=== PATIENT | female | born 1985 | race Caucasian/White ===

== ENCOUNTER 2021-11-03 07:52 | Emergency (ER) | payer OTHER, SELFPAY ==
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
[2021-11-03 08:02] VITALS: BP 115/60; PULSE 81; RESP 18; TEMP 36.3; O2SAT 98; BMI 28.8
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
[2021-11-03] MEDS: Ibuprofen 800 MG TABLET PO (10:42)
--- NOTE | 2021-11-03 11:32 | PC.NURSE ---
PT IN NO DISTRESS. 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 PT AWAKE, ALERT AND ORIENTED X 3. SKIN WARM AND DRY., RESP UNLABORED. DENIES N/V. NO ACUTE DISTRESS.
[2021-11-03 11:37] VITALS: PULSE 70; RESP 18
== END 2021-11-03 11:43 | disposition home or self-care (01) ==
PROVIDERS: Emergency Provider Emergency Medicine
DX: S13.4XXA Sprain of ligaments of cervical spine, initial encounter (principal); S76.012A Strain of muscle, fascia and tendon of left hip, initial encounter; S46.912A Strain of unspecified muscle, fascia and tendon at shoulder and upper arm level, left arm, initial encounter; V43.52XA Car driver injured in collision with other type car in traffic accident, initial encounter; Y93.9 Activity, unspecified; Y92.410 Unspecified street and highway as the place of occurrence of the external cause; Y99.9 Unspecified external cause status; Z79.899 Other long term (current) drug therapy
CPT/HCPCS: 72125; 73030; 73502; 99283; 99284

== ENCOUNTER → 2022-12-13 14:42 | Outpatient (BNVA) | payer OTHER, SELFPAY | PROVIDERS: Visit Provider Anesthesiology | DX: M96.1 Postlaminectomy syndrome, not elsewhere classified (principal); M47.816 Spondylosis without myelopathy or radiculopathy, lumbar region; M51.36 Other intervertebral disc degeneration, lumbar region; M46.1 Sacroiliitis, not elsewhere classified; M53.3 Sacrococcygeal disorders, not elsewhere classified; G89.29 Other chronic pain | CPT/HCPCS: 99202 ==